=== PATIENT | female | born 1985 | race Caucasian/White ===

== ENCOUNTER 2018-10-15 02:33 | Inpatient (IN) ==
[2018-10-15 01:55] LABS: Bilirubin,Urine Negative (Negative); Blood,Urine Large (Negative); Clarity,Urine Cloudy (Clear); Color,Urine Red (Yellow); Glucose,Urine (UA) Normal (Normal); Ketones,Urine Trace mg/dL (Negative); Leukocyte Esterase,Urine Small (Negative); Nitrite,Urine Negative (Negative); PH,Urine 6.5 pH Units (5.0-8.0); Protein,Urine 100 mg/dL (Neg-Trace); Specific Gravity,Urine 1.008 (1.010-1.025); Urobilinogen,Urine Normal (Normal)
[2018-10-15 01:57] LABS: Bacteria,Urine None Seen per hpf (None-Few); Hyaline Casts,Urine None Seen per lpf (None-Few); RBC,Urine TNTC per hpf (0-3); Squamous Epithelial Cell,Urine Many per lpf (None-Few)
[2018-10-15 02:08] LABS: Transitional Epi Cells,Urine Few per hpf (None-Few)
[2018-10-15 02:12] LABS: Amphetamine Screen,Urine Negative ng/mL (Cutoff=1000); Barbiturate Screen,Urine Negative ng/mL (Cutoff=200); Benzodiazepines Screen,Urine Negative ng/mL (Cutoff=200); Cannabinoid Screen,Urine Negative ng/mL (Cutoff = 50); Cocaine Screen,Urine Negative ng/mL (Cutoff= 300); Opiate Screen,Urine Negative ng/mL (Cutoff=300); Phencyclidine Screen,Urine Negative ng/mL (Cutoff=25)
[~2018-10-15 02:33] MED LIST: *HR* Nalbuphine 10 MG/ML AMPUL IVP PRN; Azithromycin 250 MG TABLET PO ONE; Famotidine 20 MG/2 ML VIAL IVP PRN; Metoclopramide 10 MG/2 ML VIAL IVP PRN; Naloxone 0.4 MG/ML INJ IVP PRN; Ondansetron 4 MG/2 ML VIAL IVP PRN
--- NOTE | 2018-10-15 02:37 | OB/GYN History & Physical ---
Date of Encounter: 10/15/18 Time of Encounter: 02:34 Assessment and Plan (1) 32 weeks gestation of Current visit: Yes Status: Acute Patient at 32 weeks gestation by last menstrual period presents with vaginal bleeding which is found to be was likely ruptured membranes by history and exam. Did discuss with patient concern over the high likelihood of ensuing labor and the risk of chorioamnionitis. I have advised admission to hospital for ob servation. I did advise to go ahead and give steroids as well as start antibiotic prophylaxis against infection. I did advise that we could obviously continue following clinical course if her bleeding and leaking should stop we could reconsider treatment options. I did advise obtaining ultrasound in morning to assess growth and fluid levels. She is Rh- and did receive RhoGAM at 28 weeks. (2) Premature rupture of membranes (PROM) affecting fifth Current visit: Yes Status: Acute History of Present Illness Chief complaint: Postcoital bleeding at 32 weeks gestation HPI: Ms. ryan is a 33 year old female 7 para 5 female with an EDC of 12/08/18 presents at 32 weeks and 2 days with complaint of having dark blood from the vagina since approximately 1600 this afternoon when they had relations. She states she got up to go to the bathroom and noticed leakage of some fluid which was blood-tinged. This has continued and now she states approximately a cup and a half of blood-tinged fluid. She called her application technician at the [facility] and decision was made to come to the now for evaluation. Of note this been uncomplicated at the [facility]. Her EDC is based on certain last menstrual period her gestational age at her first visit was 21 weeks and 1 day blood type is A- and she did receive Rhogam on 09/23. She has had 1 prior miscarriage which was approximately last July. Her other 5 vaginal deliveries have been at term without complications. Past Med Surg Social Fam HX - Past Medical History Source: patient Medical history: no medical history Psychiatric history: no psych history - Past Surgical History Surgical History: no surgical history - Social History Smoking Status: Never smoker Alcohol use: none Drug use: none Obstetrical History - Pregnancies : 7 Para: 5 Medications and Allergies No Known Home Drugs 10/15/18 [History] Allergy/AdvReac Type Severity Reaction Status Date / Time No Known Allergies Allergy Verified 10/15/18 01:31 Exam - Constitutional Constitutional: well developed, well nourished, no acute distress - HEENT HEENT: EOMI, PERRL - Neck Neck exam: full ROM - Lungs Respiratory exam: CTAB - Cardiovascular Cardiovascular exam: RRR - Abdomen Abdomen: Present: gravid, non tender - Extremities Extremities exam: full ROM Deep Tendon Reflex Grade: 2+ Normal - Uterus Uterus exam: Present: enlarged - Comments Comments: Sterile speculum exam revealed large amount of thin blood-tinged fluid which was obviously nitrazine positive however I could not get ferning to occur. Cervix was initially closed Results Abnormal lab results Urine Color Red (Yellow) A 10/15/18 01:35 Urine Clarity Cloudy (Clear) A 10/15/18 01:35 Ur Specific [place] 1.008 (1.010-1.025) L 10/15/18 01:35 Urine Protein 100 mg/dL (Neg-Trace) H 10/15/18 01:35 Urine Ketones Trace mg/dL (Negative) H 10/15/18 01:35 Urine Blood Large (Negative) H 10/15/18 01:35 Ur Leukocyte Esterase Small (Negative) H 10/15/18 01:35 Urine Microscopic RBC TNTC per hpf (0-3) H 10/15/18 01:35 Urine Microscopic WBC 5-15 per hpf (0-3) H 10/15/18 01:35 Ur Squamous Epith Cells Many per lpf (None-Few) H 10/15/18 01:35 Ur Culture Indicated? YES (NO) A 10/15/18 01:35 All other labs normal. - VTE Reasons for not Prescribing Prophylaxis: Treatment not Indicated - Low risk for VTE
[2018-10-15] MEDS: Betamethasone Acet/SodPhos 30 MG/5 ML VIAL IM SCH (03:00)
[2018-10-15 03:12] LABS: Basophils % 0.1 %; Hematocrit 36.4 % (35.3-44.9); Hemoglobin 11.9 g/dL (11.5-15.4); Immature Granulocytes % 0.5 % (0-4); Lymphocytes # 2.3 K/mcL (0.6-4.6); Lymphocytes % 18.7 %; Mean Corpuscular HGB Conc 32.7 g/dL (31.6-35.5); Mean Corpuscular Hemoglobin 26.1 pg (28.0-33.3); Mean Corpuscular Volume 79.8 fL (83.0-100.0); Mean Platelet Volume 10.5 fL (9.4-12.4); Monocytes # 0.6 K/mcL (0.0-1.3); Monocytes % 4.9 %; Neutrophils # 9.2 K/mcL (1.6-8.9); Platelet Count 127 K/mcL (140-400); Red Blood Count 4.56 M/mcL (3.82-4.97); Red Cell Distribution Width 13.9 % (11.5-14.5); Segmented Neutrophils % 75.8 %; White Blood Count 12.2 K/mcL (4.3-11.1)
[2018-10-15] MEDS: Ampicillin 2 GM in 0.9 % Sodium Chloride Mini Bag 100 ML IVPB SCH ×4 (03:26→21:30)
[2018-10-15] MEDS: Ringers Solution, Lactated 1,000 ML IVC SCH ×3 (03:26→21:31)
--- NOTE | 2018-10-15 09:56 | OB/GYN Progress Note ---
Date of Encounter: 10/15/18 Time of Encounter: 09:53 - Assessment and Plan (1) 32 weeks gestation of Current Visit: Yes Status: Acute care done by soccer player. Pt is [employer]. Today was her first US with this . (2) Premature rupture of membranes (PROM) affecting fifth Current Visit: Yes Status: Acute She is s/p first dose of BMZ and has had azithromycin 500mg po x1 w/ Ampicillin 2g IV q6hr x48 hrs. She is on continuous monitoring. Plan to have her modified bedrest w/ consult to peds service. She will continue her abx for latency and receive second dose of steroids tomorrow morning. Adding T&S to next hgb check. Plan to collect GBS swab. Her WBC is normal. No clinical sign of chorio. No sign of PTL. Her growth is on target for GA. The fetus is cephalic with a posterior placenta. Discussed plan with the patient and her . All questions answered. Subjective - Subjective Principal diagnosis: pt reports that the bleeding is very light now Interval history: 33yo at 32 2/7 wks by sure LMP w/ reg menses who presented this AM w/ vb which began yesterday afternoon. She was examined this AM and was noted to have a large pool of bloody fluid. She was nitrazine pos but no ferning was noted. She has not had an US in the until today. She just had a growth scan. Antepartum ROS: vaginal bleeding, movement normal, no contractions (no f/c or abd pain) Objective - Vital Signs Vital Signs: Intake and Output 10/14/18 10/15/18 10/15/18 23:59 07:59 15:59 Intake Total 100 / 100 Balance 100 / 100 Intake: IV Fluids 100 / 100 Ampicillin 2 GM In 0.9 % Sodium 100 / 100 Chloride (Mini-Bag +) 100 ML @ 200 mls/hr IVPB Q6H [facility] Rx#: [id number] Other: Weight 98.43 kg Patient Weight 10/15/18 23:59 Weight 98.43 kg - Exam FHR: other Auscultation: bilateral: normal (RRR) Abdomen: Present: soft, gravid. Absent: tenderness Uterus: Absent: tenderness Cervical dilation: vis closed - Labs Labs: Abnormal lab results WBC 12.2 K/mcL (4.3-11.1) H 10/15/18 02:50 MCV 79.8 fL (83.0-100.0) L 10/15/18 02:50 MCH 26.1 pg (28.0-33.3) L 10/15/18 02:50 Plt Count 127 K/mcL (140-400) L 10/15/18 02:50 Neutrophils # 9.2 K/mcL (1.6-8.9) H 10/15/18 02:50 Urine Color Red (Yellow) A 10/15/18 01:35 Urine Clarity Cloudy (Clear) A 10/15/18 01:35 Ur Specific [place] 1.008 (1.010-1.025) L 10/15/18 01:35 Urine Protein 100 mg/dL (Neg-Trace) H 10/15/18 01:35 Urine Ketones Trace mg/dL (Negative) H 10/15/18 01:35 Urine Blood Large (Negative) H 10/15/18 01:35 Ur Leukocyte Esterase Small (Negative) H 10/15/18 01:35 Urine Microscopic RBC TNTC per hpf (0-3) H 10/15/18 01:35 Urine Microscopic WBC 5-15 per hpf (0-3) H 10/15/18 01:35 Ur Squamous Epith Cells Many per lpf (None-Few) H 10/15/18 01:35 Ur Culture Indicated? YES (NO) A 10/15/18 01:35
[2018-10-16] MEDS: Betamethasone Acet/SodPhos 30 MG/5 ML VIAL IM SCH (03:27)
[2018-10-16] MEDS: Ampicillin 2 GM in 0.9 % Sodium Chloride Mini Bag 100 ML IVPB SCH ×4 (03:27→22:12)
[2018-10-16] MEDS ORDERED: Ondansetron 4 MG/2 ML VIAL IVP PRN (13:12)
[2018-10-16] MEDS ORDERED: Acetaminophen 325 MG TABLET PO PRN (13:12)
[2018-10-16] MEDS ORDERED: 0.9 % Sodium Chloride 250 ML ONE (22:02)
[2018-10-17] MEDS ORDERED: Amoxicillin 500 MG CAPSULE PO SCH (08:00)
[2018-10-17] MEDS: Amoxicillin 500 MG CAPSULE PO SCH ×2 (10:06→16:44)
--- NOTE | 2018-10-17 10:15 | OB/GYN Progress Note ---
Date of Encounter: 10/17/18 Time of Encounter: 10:12 - Assessment and Plan (1) 32 weeks gestation of Current Visit: Yes Status: Acute (2) Premature rupture of membranes (PROM) affecting fifth Current Visit: Yes Status: Acute Stable PPROM Continue current management transition to PO antibiotics today encourage SCDs while in bed Remove P-lock Subjective - Subjective Interval history: Pt states feels well, denies contractions, vaginal bleeding or any current leaking of fluid. Reports good movement. No chills or s/s of fever. Antepartum ROS: movement normal, no loss of fluid, no vaginal bleeding, no contractions Objective - Vital Signs Vital Signs: Vital Signs Temp Pulse Resp BP Pulse Ox 10/17/18 08:26 97.9 F 85 16 120/70 97 10/17/18 06:02 97.7 F 10/17/18 05:00 97.7 F 76 14 102/64 99 10/17/18 02:00 98.3 F 10/17/18 00:00 98.3 F 85 18 101/53 98 10/16/18 22:15 98.2 F 10/16/18 20:00 98.1 F 78 14 118/78 96 10/16/18 17:30 98.4 F 90 18 120/67 100 10/16/18 15:59 98.2 F 10/16/18 13:30 98.0 F 87 18 103/62 97 Intake and Output 10/16/18 10/17/18 10/17/18 23:59 07:59 15:59 Intake Total 1000 / 1200 300 / 300 Output Total 1500 / 2700 600 / 600 Balance -500 / -1500 -300 / -300 Intake: IV Fluids 200 / 300 Ampicillin 2 GM In 0.9 % Sodium 200 / 200 Chloride (Mini-Bag +) 100 ML @ 200 mls/hr IVPB Q6H [facility] Rx#: [id number] Oral 800 / 900 300 / 300 Output: Urine 1500 / 2700 600 / 600 - Exam FHR: auscultation normal FHR comments: Baseline on NST 130 Auscultation: bilateral: normal Abdomen: Present: soft, gravid - Labs Labs: Abnormal lab results WBC 12.2 K/mcL (4.3-11.1) H 10/15/18 02:50 MCV 79.8 fL (83.0-100.0) L 10/15/18 02:50 MCH 26.1 pg (28.0-33.3) L 10/15/18 02:50 Plt Count 127 K/mcL (140-400) L 10/15/18 02:50 Neutrophils # 9.2 K/mcL (1.6-8.9) H 10/15/18 02:50 Urine Color Red (Yellow) A 10/15/18 01:35 Urine Clarity Cloudy (Clear) A 10/15/18 01:35 Ur Specific [place] 1.008 (1.010-1.025) L 10/15/18 01:35 Urine Protein 100 mg/dL (Neg-Trace) H 10/15/18 01:35 Urine Ketones Trace mg/dL (Negative) H 10/15/18 01:35 Urine Blood Large (Negative) H 10/15/18 01:35 Ur Leukocyte Esterase Small (Negative) H 10/15/18 01:35 Urine Microscopic RBC TNTC per hpf (0-3) H 10/15/18 01:35 Urine Microscopic WBC 5-15 per hpf (0-3) H 10/15/18 01:35 Ur Squamous Epith Cells Many per lpf (None-Few) H 10/15/18 01:35 Ur Culture Indicated? YES (NO) A 10/15/18 01:35
[2018-10-18] MEDS: Amoxicillin 500 MG CAPSULE PO SCH ×4 (01:22→23:40)
--- NOTE | 2018-10-18 12:20 | OB/GYN Progress Note ---
Date of Encounter: 10/18/18 Time of Encounter: 10:30 - Assessment and Plan (1) 32 weeks gestation of Current Visit: Yes Status: Acute Continue BID NSTs Continue oral antibiotics Continue close monitoring for onset of labor and/or infection Steroids have been given Would like to keep patient until 34 weeks POC per consult with Dr Mackenzie. (2) Premature rupture of membranes (PROM) affecting fifth Current Visit: Yes Status: Acute Subjective - Subjective Principal diagnosis: PPROM Interval history: Ms Crow states that she is feeling well. +FM Increased fluid from vagina compared to yesterday; pink tinged Denies cramping, contractions, vaginal/rectal pressure, and francis vaginal bleeding Denies flu-like symptoms Antepartum ROS: loss of fluid, movement normal Objective - Vital Signs Vital Signs: Vital Signs Temp Pulse Resp BP Pulse Ox 10/18/18 09:10 97.9 F 90 16 112/70 96 10/18/18 08:45 16 10/18/18 05:00 97.6 F 90 16 110/77 96 10/18/18 01:40 98.2 F 10/17/18 23:52 98.1 F 83 16 96/51 98 10/17/18 22:53 97.7 F 10/17/18 20:14 97.9 F 79 16 115/73 96 10/17/18 18:23 98.1 F 10/17/18 16:56 98.2 F 84 16 113/64 95 10/17/18 14:44 97.6 F 10/17/18 12:27 98.3 F 89 16 105/67 98 Intake and Output 10/17/18 10/18/18 10/18/18 23:59 07:59 15:59 Output Total 1300 / 3800 1700 / 2100 400 / 2100 Balance -1300 / -3500 -1700 / -2100 -400 / -2100 Output: Urine 1300 / 3800 1700 / 2100 400 / 2100 Other: Stool Characteristics Normal for Patient Normal for Patient - Exam FHR: auscultation normal, category 1 FHR comments: Reactive NST - category 1 with 15x15 accels and no decels. No contractions per toco or palpation Auscultation: bilateral: normal Abdomen: Present: normal appearance, soft, gravid. Absent: tenderness Uterus: Present: normal. Absent: firm, tenderness - Labs Labs: Abnormal lab results WBC 12.2 K/mcL (4.3-11.1) H 10/15/18 02:50 MCV 79.8 fL (83.0-100.0) L 10/15/18 02:50 MCH 26.1 pg (28.0-33.3) L 10/15/18 02:50 Plt Count 127 K/mcL (140-400) L 10/15/18 02:50 Neutrophils # 9.2 K/mcL (1.6-8.9) H 10/15/18 02:50 Urine Color Red (Yellow) A 10/15/18 01:35 Urine Clarity Cloudy (Clear) A 10/15/18 01:35 Ur Specific [place] 1.008 (1.010-1.025) L 10/15/18 01:35 Urine Protein 100 mg/dL (Neg-Trace) H 10/15/18 01:35 Urine Ketones Trace mg/dL (Negative) H 10/15/18 01:35 Urine Blood Large (Negative) H 10/15/18 01:35 Ur Leukocyte Esterase Small (Negative) H 10/15/18 01:35 Urine Microscopic RBC TNTC per hpf (0-3) H 10/15/18 01:35 Urine Microscopic WBC 5-15 per hpf (0-3) H 10/15/18 01:35 Ur Squamous Epith Cells Many per lpf (None-Few) H 10/15/18 01:35 Ur Culture Indicated? YES (NO) A 10/15/18 01:35
[2018-10-19] MEDS: Amoxicillin 500 MG CAPSULE PO SCH ×2 (08:17→15:36)
--- NOTE | 2018-10-19 08:50 | OB/GYN Progress Note ---
Date of Encounter: 10/19/18 Time of Encounter: 08:47 - Assessment and Plan (1) 32 weeks gestation of Current Visit: Yes Status: Acute (2) Premature rupture of membranes (PROM) affecting fifth Current Visit: Yes Status: Acute Stable PPROM Continue current management Continue po antibiotics encourage SCDs while in bed Subjective - Subjective Interval history: Stable, some leaking of clear and blood tinged fluid overnight. Reports good movement. Denies contractions. Occasionally using SCD's. Antepartum ROS: loss of fluid, vaginal bleeding, movement normal, no contractions Objective - Vital Signs Vital Signs: Vital Signs Temp Pulse Resp BP Pulse Ox 10/19/18 08:11 98.0 F 88 16 116/77 97 10/19/18 02:00 98.3 F 10/18/18 23:41 97.7 F 80 15 118/70 97 10/18/18 21:32 98.1 F 10/18/18 20:10 98.1 F 83 16 112/64 97 10/18/18 17:35 16 10/18/18 17:26 98.1 F 87 16 133/81 96 10/18/18 15:10 97.9 F 89 16 125/72 98 10/18/18 14:08 98 F 10/18/18 09:10 97.9 F 90 16 112/70 96 Intake and Output 10/18/18 10/19/18 10/19/18 23:59 07:59 15:59 Intake Total 800 / 800 800 / 800 Output Total 2000 / 5000 1290 / 1890 600 / 1890 Balance -1200 / -4200 -490 / -1090 -600 / -1090 Intake: Oral 800 / 800 800 / 800 Output: Urine 2000 / 5000 1290 / 1890 600 / 1890 Other: Meal Dinner Percent of Meal Consumed 70% Stool Characteristics Normal for Patient Weight 95.889 kg Patient Weight 10/19/18 23:59 Weight 95.889 kg - Exam FHR: auscultation normal FHR comments: Reactive NST Auscultation: bilateral: normal Abdomen: Present: soft, gravid - Labs Labs: Abnormal lab results WBC 12.2 K/mcL (4.3-11.1) H 10/15/18 02:50 MCV 79.8 fL (83.0-100.0) L 10/15/18 02:50 MCH 26.1 pg (28.0-33.3) L 10/15/18 02:50 Plt Count 127 K/mcL (140-400) L 10/15/18 02:50 Neutrophils # 9.2 K/mcL (1.6-8.9) H 10/15/18 02:50 Urine Color Red (Yellow) A 10/15/18 01:35 Urine Clarity Cloudy (Clear) A 10/15/18 01:35 Ur Specific [place] 1.008 (1.010-1.025) L 10/15/18 01:35 Urine Protein 100 mg/dL (Neg-Trace) H 10/15/18 01:35 Urine Ketones Trace mg/dL (Negative) H 10/15/18 01:35 Urine Blood Large (Negative) H 10/15/18 01:35 Ur Leukocyte Esterase Small (Negative) H 10/15/18 01:35 Urine Microscopic RBC TNTC per hpf (0-3) H 10/15/18 01:35 Urine Microscopic WBC 5-15 per hpf (0-3) H 10/15/18 01:35 Ur Squamous Epith Cells Many per lpf (None-Few) H 10/15/18 01:35 Ur Culture Indicated? YES (NO) A 10/15/18 01:35
[2018-10-20] MEDS: Amoxicillin 500 MG CAPSULE PO SCH ×3 (01:29→15:57)
--- NOTE | 2018-10-20 10:52 | OB/GYN Progress Note ---
Date of Encounter: 10/20/18 Time of Encounter: 10:50 - Assessment and Plan (1) 33 weeks gestation of Current Visit: Yes Status: Acute Continue bid NST's (2) Premature rupture of membranes (PROM) affecting fifth Current Visit: Yes Status: Acute Continue PO antibiotics as ordered Plan to deliver at 34 weeks. Subjective - Subjective Principal diagnosis: PPROM Interval history: Patient is 33 weeks today. She reports positive movement, denies bright red vaginal bleeding but does report some light pink fluid. She denies any chills or feeling feverish. She is aware of plan to continue antibiotics and goal of delivery at 34 weeks. Antepartum ROS: loss of fluid, vaginal bleeding (slight pink fluid), movement normal Objective - Vital Signs Vital Signs: Vital Signs Temp Pulse Resp BP Pulse Ox 10/20/18 10:33 97.9 F 10/20/18 08:44 98.1 F 92 16 105/66 10/20/18 06:00 97.8 F 10/20/18 03:32 98.2 F 88 15 103/63 97 10/20/18 01:33 97.7 F 85 16 105/61 97 10/19/18 20:11 98.1 F 89 16 110/70 95 10/19/18 18:35 98.2 F 10/19/18 16:36 98.0 F 90 16 124/73 96 10/19/18 15:37 98.1 F 10/19/18 13:35 98.1 F Intake and Output 10/19/18 10/20/18 10/20/18 23:59 07:59 15:59 Intake Total 240 / 240 Output Total 1060 / 3850 800 / 800 Balance -1060 / -3050 -800 / -560 240 / -560 Intake: Oral 240 / 240 Output: Urine 1060 / 3850 800 / 800 Other: Meal Breakfast Percent of Meal Consumed 100% Stool Characteristics Normal for Patient - Exam FHR: auscultation normal, category 1 FHR comments: Reactive NST this morning. Auscultation: bilateral: normal Abdomen: Present: normal appearance, soft, gravid. Absent: distention, tenderness Uterus: Present: normal Cervical dilation: Deferred - Labs Labs: Abnormal lab results WBC 12.2 K/mcL (4.3-11.1) H 10/15/18 02:50 MCV 79.8 fL (83.0-100.0) L 10/15/18 02:50 MCH 26.1 pg (28.0-33.3) L 10/15/18 02:50 Plt Count 127 K/mcL (140-400) L 10/15/18 02:50 Neutrophils # 9.2 K/mcL (1.6-8.9) H 10/15/18 02:50 Urine Color Red (Yellow) A 10/15/18 01:35 Urine Clarity Cloudy (Clear) A 10/15/18 01:35 Ur Specific [place] 1.008 (1.010-1.025) L 10/15/18 01:35 Urine Protein 100 mg/dL (Neg-Trace) H 10/15/18 01:35 Urine Ketones Trace mg/dL (Negative) H 10/15/18 01:35 Urine Blood Large (Negative) H 10/15/18 01:35 Ur Leukocyte Esterase Small (Negative) H 10/15/18 01:35 Urine Microscopic RBC TNTC per hpf (0-3) H 10/15/18 01:35 Urine Microscopic WBC 5-15 per hpf (0-3) H 10/15/18 01:35 Ur Squamous Epith Cells Many per lpf (None-Few) H 10/15/18 01:35 Ur Culture Indicated? YES (NO) A 10/15/18 01:35
[2018-10-21] MEDS: Amoxicillin 500 MG CAPSULE PO SCH ×3 (08:44→23:45)
--- NOTE | 2018-10-21 09:58 | OB/GYN Progress Note ---
Date of Encounter: 10/21/18 Time of Encounter: 09:54 - Assessment and Plan (1) 32 weeks gestation of Current Visit: Yes Status: Acute Patient at 32 weeks gestation by last menstrual period presents with vaginal bleeding which is found to be was likely ruptured membranes by history and exam. Did discuss with patient concern over the high likelihood of ensuing labor and the risk of chorioamnionitis. I have advised admission to hospital for o bservation. I did advise to go ahead and give steroids as well as start antibiotic prophylaxis against infection. I did advise that we could obviously continue following clinical course if her bleeding and leaking should stop we could reconsider treatment options. I did advise obtaining ultrasound in morning to assess growth and fluid levels. She is Rh- and did receive RhoGAM at 28 weeks 10/21/18- Pt at 33w1d gestation with PROM x 1 week, she is currently on PO Augmentin. I called [facility] to discuss possible d/c home on home bedrest and M doesn't advise this. They advise continued hospital observation with antepartum monitoring with expectation of delivery at 34 weeks, or sooner if labor, infetion or compromise ensues. Pt and her express understanding. (2) Premature rupture of membranes (PROM) affecting fifth Current Visit: Yes Status: Acute Subjective - Subjective Principal diagnosis: PROM Interval history: Pt stable, no uc's, no vb, no fever or abdominal pain. Objective - Vital Signs Vital Signs: Vital Signs Temp Pulse Resp BP Pulse Ox 10/21/18 07:56 97.9 F 78 16 119/65 95 10/21/18 06:26 97.6 F 10/21/18 04:00 97.9 F 83 15 105/65 98 10/21/18 02:15 98.2 F 10/20/18 20:00 98.1 F 86 16 115/60 97 10/20/18 16:08 98.2 F 90 16 107/74 10/20/18 14:00 97.9 F 10/20/18 11:55 97.9 F 93 16 102/69 10/20/18 10:33 97.9 F Intake and Output 10/20/18 10/21/18 10/21/18 23:59 07:59 15:59 Output Total 300 / 300 Balance -300 / -300 Output: Urine 300 / 300 - Exam FHR: category 1 Auscultation: bilateral: normal Abdomen: Present: gravid Uterus: Present: other (non tender) - Labs Labs: Abnormal lab results WBC 12.2 K/mcL (4.3-11.1) H 10/15/18 02:50 MCV 79.8 fL (83.0-100.0) L 10/15/18 02:50 MCH 26.1 pg (28.0-33.3) L 10/15/18 02:50 Plt Count 127 K/mcL (140-400) L 10/15/18 02:50 Neutrophils # 9.2 K/mcL (1.6-8.9) H 10/15/18 02:50 Urine Color Red (Yellow) A 10/15/18 01:35 Urine Clarity Cloudy (Clear) A 10/15/18 01:35 Ur Specific [place] 1.008 (1.010-1.025) L 10/15/18 01:35 Urine Protein 100 mg/dL (Neg-Trace) H 10/15/18 01:35 Urine Ketones Trace mg/dL (Negative) H 10/15/18 01:35 Urine Blood Large (Negative) H 10/15/18 01:35 Ur Leukocyte Esterase Small (Negative) H 10/15/18 01:35 Urine Microscopic RBC TNTC per hpf (0-3) H 10/15/18 01:35 Urine Microscopic WBC 5-15 per hpf (0-3) H 10/15/18 01:35 Ur Squamous Epith Cells Many per lpf (None-Few) H 10/15/18 01:35 Ur Culture Indicated? YES (NO) A 10/15/18 01:35
--- NOTE | 2018-10-22 09:28 | OB/GYN Progress Note ---
Date of Encounter: 10/22/18 Time of Encounter: 09:27 - Assessment and Plan (1) Premature rupture of membranes (PROM) affecting sixth Current Visit: Yes Status: Acute Cont inpatient monitoring for signs of PTL and chorioamnionitis. Cont to monitor fetus w/ twice daily NSTs. Currently stable. (2) 33 weeks gestation of Current Visit: Yes Status: Acute Complicated by PPROM Subjective - Subjective Principal diagnosis: PPROM Interval history: 33yo at 33 2/7 wks who presented at 32 2/7 wks w/ 24 hr of PPROM-blood tinged watery fluid. She was admitted for steroids for FLM and abx for latency which she completed yesterday. She is GBS neg. She has demonstrated no sign of PTL or chorioamnionitis. She continues to leak small amounts of blood tinged amniotic fluid. Plan will be for IOL at 34 wks if she remains stable. She had a normal growth scan on admission and was cephalic. Antepartum ROS: loss of fluid, vaginal bleeding, movement normal, contractions (irregular and not painful), no new complaints Objective - Vital Signs Vital Signs: Vital Signs Temp Pulse Resp BP Pulse Ox 10/22/18 07:56 98.2 F 98 16 122/78 99 10/22/18 06:05 97.9 F 10/22/18 04:00 98.2 F 84 14 107/69 99 10/22/18 01:36 98.2 F 10/21/18 23:48 98.3 F 78 14 92/60 97 10/21/18 21:55 98.3 F 10/21/18 19:50 98.1 F 81 18 114/60 98 10/21/18 18:06 98.2 F 10/21/18 16:27 98.6 F 85 18 116/76 10/21/18 14:40 97.5 F L 10/21/18 12:30 98.1 F 86 16 114/68 97 10/21/18 10:20 98.2 F Intake and Output 10/21/18 10/22/18 10/22/18 23:59 07:59 15:59 Intake Total 900 / 900 Output Total 2200 / 3000 Balance -1300 / -2100 Intake: Oral 900 / 900 Output: Urine 2200 / 3000 Other: Meal Dinner Percent of Meal Consumed 100% # Voids 1 Weight 93.4 kg Patient Weight 10/22/18 23:59 Weight 93.4 kg - Exam FHR comments: R NST this AM Auscultation: bilateral: normal (RRR on cardiac exam) Abdomen: Present: normal appearance, soft, gravid. Absent: tenderness Uterus: Absent: tenderness - Labs Labs: Abnormal lab results WBC 12.2 K/mcL (4.3-11.1) H 10/15/18 02:50 MCV 79.8 fL (83.0-100.0) L 10/15/18 02:50 MCH 26.1 pg (28.0-33.3) L 10/15/18 02:50 Plt Count 127 K/mcL (140-400) L 10/15/18 02:50 Neutrophils # 9.2 K/mcL (1.6-8.9) H 10/15/18 02:50 Urine Color Red (Yellow) A 10/15/18 01:35 Urine Clarity Cloudy (Clear) A 10/15/18 01:35 Ur Specific [place] 1.008 (1.010-1.025) L 10/15/18 01:35 Urine Protein 100 mg/dL (Neg-Trace) H 10/15/18 01:35 Urine Ketones Trace mg/dL (Negative) H 10/15/18 01:35 Urine Blood Large (Negative) H 10/15/18 01:35 Ur Leukocyte Esterase Small (Negative) H 10/15/18 01:35 Urine Microscopic RBC TNTC per hpf (0-3) H 10/15/18 01:35 Urine Microscopic WBC 5-15 per hpf (0-3) H 10/15/18 01:35 Ur Squamous Epith Cells Many per lpf (None-Few) H 10/15/18 01:35 Ur Culture Indicated? YES (NO) A 10/15/18 01:35
[2018-10-22] MEDS: Amoxicillin 500 MG CAPSULE PO SCH (11:09)
--- NOTE | 2018-10-23 08:18 | OB/GYN Progress Note ---
Date of Encounter: 10/23/18 Time of Encounter: 08:16 - Assessment and Plan (1) 33 weeks gestation of Current Visit: Yes Status: Acute Continue routine care per orders Dr. Mackenzie updated on assessment, no new recommendations at this time (2) Premature rupture of membranes (PROM) affecting sixth Current Visit: Yes Status: Acute Plan IOL at 34 weeks gestation Subjective - Subjective Principal diagnosis: PPROM Interval history: Patient is currently 33w3d gestation. She denies any new LOF or VB. Patient reports good movement. Antibiotics are complete. NSTs are still scheduled daily. Vital signs are stable. Antepartum ROS: movement normal, no contractions Objective - Vital Signs Vital Signs: Vital Signs Temp Pulse Resp BP Pulse Ox 10/23/18 07:36 98.2 F 92 16 106/92 99 10/23/18 06:01 97.6 F 10/23/18 03:25 97.9 F 85 16 91/55 96 10/23/18 00:40 98.2 F 81 16 98/51 96 10/22/18 22:24 98.1 F 10/22/18 21:20 97.6 F 10/22/18 20:00 98 F 86 16 113/72 95 10/22/18 18:00 98.2 F 10/22/18 16:00 98.1 F 78 14 110/57 98 10/22/18 14:05 98.0 F 10/22/18 12:00 98.8 F 93 14 120/74 10/22/18 10:00 98.2 F Intake and Output 10/22/18 10/23/18 10/23/18 23:59 07:59 15:59 Intake Total 800 / 800 Output Total 1600 / 2700 500 / 500 Balance -800 / -1900 -500 / -500 Intake: Oral 800 / 800 Output: Urine 1600 / 2700 500 / 500 - Exam Auscultation: bilateral: normal Abdomen: Present: normal appearance, soft, gravid - Labs Labs: Abnormal lab results WBC 12.2 K/mcL (4.3-11.1) H 10/15/18 02:50 MCV 79.8 fL (83.0-100.0) L 10/15/18 02:50 MCH 26.1 pg (28.0-33.3) L 10/15/18 02:50 Plt Count 127 K/mcL (140-400) L 10/15/18 02:50 Neutrophils # 9.2 K/mcL (1.6-8.9) H 10/15/18 02:50 Urine Color Red (Yellow) A 10/15/18 01:35 Urine Clarity Cloudy (Clear) A 10/15/18 01:35 Ur Specific [place] 1.008 (1.010-1.025) L 10/15/18 01:35 Urine Protein 100 mg/dL (Neg-Trace) H 10/15/18 01:35 Urine Ketones Trace mg/dL (Negative) H 10/15/18 01:35 Urine Blood Large (Negative) H 10/15/18 01:35 Ur Leukocyte Esterase Small (Negative) H 10/15/18 01:35 Urine Microscopic RBC TNTC per hpf (0-3) H 10/15/18 01:35 Urine Microscopic WBC 5-15 per hpf (0-3) H 10/15/18 01:35 Ur Squamous Epith Cells Many per lpf (None-Few) H 10/15/18 01:35 Ur Culture Indicated? YES (NO) A 10/15/18 01:35
[2018-10-23] MEDS: Amoxicillin 500 MG CAPSULE PO SCH (09:36)
--- NOTE | 2018-10-24 11:47 | OB/GYN Progress Note ---
Date of Encounter: 10/24/18 Time of Encounter: 11:45 - Assessment and Plan (1) premature rupture of membranes (PPROM) with unknown onset of labor Current Visit: Yes Status: Acute Continue to observe for s/sx infection or labor. Anticipate IOL at 34 weeks gestation. (2) 33 weeks gestation of Current Visit: Yes Status: Acute Subjective - Subjective Interval history: Pt reports occassional leaking. No bleeding. Good FM. Rare contractions. No fevers or chills. No pain. No other complaints. Antepartum ROS: loss of fluid, movement normal, contractions (occassional) Objective - Vital Signs Vital Signs: Vital Signs Temp Pulse Resp BP Pulse Ox 10/24/18 08:29 98.2 F 90 16 112/59 10/24/18 06:10 98.0 F 10/24/18 04:17 97.8 F 77 14 98/61 97 10/24/18 02:30 97.9 F 10/24/18 00:00 97.9 F 87 16 100/61 95 10/23/18 22:02 98.2 F 10/23/18 19:45 98.2 F 87 16 124/70 95 10/23/18 16:26 98.0 F 10/23/18 12:49 98.3 F 91 14 122/73 96 Intake and Output 10/23/18 10/24/18 10/24/18 23:59 07:59 15:59 Intake Total 0 / 1620 1620 / 1620 Output Total 550 / 1050 1500 / 1500 Balance -550 / -1050 -1500 / 120 1620 / 120 Intake: Oral 0 / 1620 1620 / 1620 Output: Urine 550 / 1050 1500 / 1500 Other: Meal Breakfast Percent of Meal Consumed 100% Weight 96.615 kg Patient Weight 10/24/18 23:59 Weight 96.615 kg - Exam FHR: category 1 FHR comments: 140 BPM, Reactive NST Auscultation: bilateral: normal Abdomen: Present: soft, gravid. Absent: tenderness Uterus: Absent: tenderness - Labs Labs: Abnormal lab results WBC 12.2 K/mcL (4.3-11.1) H 10/15/18 02:50 MCV 79.8 fL (83.0-100.0) L 10/15/18 02:50 MCH 26.1 pg (28.0-33.3) L 10/15/18 02:50 Plt Count 127 K/mcL (140-400) L 10/15/18 02:50 Neutrophils # 9.2 K/mcL (1.6-8.9) H 10/15/18 02:50 Urine Color Red (Yellow) A 10/15/18 01:35 Urine Clarity Cloudy (Clear) A 10/15/18 01:35 Ur Specific [place] 1.008 (1.010-1.025) L 10/15/18 01:35 Urine Protein 100 mg/dL (Neg-Trace) H 10/15/18 01:35 Urine Ketones Trace mg/dL (Negative) H 10/15/18 01:35 Urine Blood Large (Negative) H 10/15/18 01:35 Ur Leukocyte Esterase Small (Negative) H 10/15/18 01:35 Urine Microscopic RBC TNTC per hpf (0-3) H 10/15/18 01:35 Urine Microscopic WBC 5-15 per hpf (0-3) H 10/15/18 01:35 Ur Squamous Epith Cells Many per lpf (None-Few) H 10/15/18 01:35 Ur Culture Indicated? YES (NO) A 10/15/18 01:35
--- NOTE | 2018-10-25 10:16 | OB/GYN Progress Note ---
Date of Encounter: 10/25/18 Time of Encounter: 10:10 - Assessment and Plan (1) 33 weeks gestation of Current Visit: Yes Status: Acute no active s/s labor. + movement, not edwin. (2) Premature rupture of membranes (PROM) affecting sixth Current Visit: Yes Status: Acute 33 yo F at 33 weeks 5 days No change from prior assessments, continue to monitor for signs and symptoms of infection or signs and symptoms of labor. Anticipate IOL at 34 weeks gestation. Subjective - Subjective Principal diagnosis: PPROM Interval history: Patient reports no significant changes from yesterday. She denies any fevers or chills, nausea or vomiting, pain, leakage of fluids, vaginal bleeding, contractions. Reports good movement. Denies headache, blurry vision, double vision, weakness, chest pain, shortness of breath, nausea, vomiting, numbness or tingling, weakness Antepartum ROS: no new complaints Objective - Vital Signs Vital Signs: Vital Signs Temp Pulse Resp BP Pulse Ox 10/25/18 07:35 98.0 F 87 18 101/69 98 10/25/18 05:30 98.0 F 82 16 107/62 97 10/24/18 23:50 98.0 F 87 15 123/68 98 10/24/18 15:33 98.3 F 90 16 106/61 10/24/18 11:49 98.2 F 86 16 109/64 Intake and Output 10/24/18 10/25/18 10/25/18 23:59 07:59 15:59 Intake Total 1700 / 4360 360 / 360 Output Total 1200 / 4600 900 / 900 Balance 500 / -240 -900 / -540 360 / -540 Intake: Oral 1700 / 4360 360 / 360 Output: Urine 1200 / 4600 900 / 900 Other: Meal Dinner Breakfast Percent of Meal Consumed 100% 100% Stool Characteristics Normal for Patient Normal for Patient Weight 93.2 kg Patient Weight 10/25/18 23:59 Weight 93.2 kg - Exam FHR: category 1 Auscultation: bilateral: normal Abdomen: Present: normal appearance, gravid Uterus: Present: normal Cervical dilation: Pelvic exam deferred - Labs Labs: Abnormal lab results WBC 12.2 K/mcL (4.3-11.1) H 10/15/18 02:50 MCV 79.8 fL (83.0-100.0) L 10/15/18 02:50 MCH 26.1 pg (28.0-33.3) L 10/15/18 02:50 Plt Count 127 K/mcL (140-400) L 10/15/18 02:50 Neutrophils # 9.2 K/mcL (1.6-8.9) H 10/15/18 02:50 Urine Color Red (Yellow) A 10/15/18 01:35 Urine Clarity Cloudy (Clear) A 10/15/18 01:35 Ur Specific [place] 1.008 (1.010-1.025) L 10/15/18 01:35 Urine Protein 100 mg/dL (Neg-Trace) H 10/15/18 01:35 Urine Ketones Trace mg/dL (Negative) H 10/15/18 01:35 Urine Blood Large (Negative) H 10/15/18 01:35 Ur Leukocyte Esterase Small (Negative) H 10/15/18 01:35 Urine Microscopic RBC TNTC per hpf (0-3) H 10/15/18 01:35 Urine Microscopic WBC 5-15 per hpf (0-3) H 10/15/18 01:35 Ur Squamous Epith Cells Many per lpf (None-Few) H 10/15/18 01:35 Ur Culture Indicated? YES (NO) A 10/15/18 01:35
--- NOTE | 2018-10-25 17:30 | OB/GYN Progress Note ---
Date of Encounter: 10/25/18 Time of Encounter: 17:23 - Assessment and Plan (1) 32 weeks gestation of Current Visit: Yes Status: Acute Patient at 32 weeks gestation by last menstrual period presents with vaginal bleeding which is found to be was likely ruptured membranes by history and exam. Did discuss with patient concern over the high likelihood of ensuing labor and the risk of chorioamnionitis. I have advised admission to hospital for o bservation. I did advise to go ahead and give steroids as well as start antibiotic prophylaxis against infection. I did advise that we could obviously continue following clinical course if her bleeding and leaking should stop we could reconsider treatment options. I did advise obtaining ultrasound in morning to assess growth and fluid levels. She is Rh- and did receive RhoGAM at 28 weeks 10/21/18- Pt at 33w1d gestation with PROM x 1 week, she is currently on PO Augmentin. I called [facility] to discuss possible d/c home on home bedrest and M doesn't advise this. They advise continued hospital observation with antepartum monitoring with expectation of delivery at 34 weeks, or sooner if labor, infetion or compromise ensues. Pt and her express understanding. 10/25- Pt doing well without s/sx's of infection. occ uc's. Will cont current plan to observe and watch for s/sx's of infection. She is s/p steroids, IV and PO atb's. Plan will be to begin induction at 34 weeks. (2) Premature rupture of membranes (PROM) affecting fifth Current Visit: Yes Status: Acute Subjective - Subjective Principal diagnosis: PROM Interval history: Pt doing well today is 33w5d. She has had some clear drainage. rare uc's. +GFM. Objective - Vital Signs Vital Signs: Vital Signs Temp Pulse Resp BP Pulse Ox 10/25/18 15:14 98.3 F 102 16 117/80 10/25/18 11:23 97.8 F 90 16 108/65 10/25/18 07:35 98.0 F 87 18 101/69 98 10/25/18 05:30 98.0 F 82 16 107/62 97 10/24/18 23:50 98.0 F 87 15 123/68 98 Intake and Output 10/25/18 10/25/18 10/25/18 07:59 15:59 23:59 Intake Total 1720 / 1720 Output Total 900 / 2800 1900 / 2800 Balance -900 / -1080 -180 / -1080 Intake: Oral 1720 / 1720 Output: Urine 900 / 2800 1900 / 2800 Other: Meal Lunch Percent of Meal Consumed 100% Stool Characteristics Normal for Patient Weight 93.2 kg Patient Weight 10/25/18 23:59 Weight 93.2 kg - Exam FHR: category 1 Auscultation: bilateral: normal Abdomen: Present: normal appearance Uterus: Present: normal - Labs Labs: Abnormal lab results WBC 12.2 K/mcL (4.3-11.1) H 10/15/18 02:50 MCV 79.8 fL (83.0-100.0) L 10/15/18 02:50 MCH 26.1 pg (28.0-33.3) L 10/15/18 02:50 Plt Count 127 K/mcL (140-400) L 10/15/18 02:50 Neutrophils # 9.2 K/mcL (1.6-8.9) H 10/15/18 02:50 Urine Color Red (Yellow) A 10/15/18 01:35 Urine Clarity Cloudy (Clear) A 10/15/18 01:35 Ur Specific [place] 1.008 (1.010-1.025) L 10/15/18 01:35 Urine Protein 100 mg/dL (Neg-Trace) H 10/15/18 01:35 Urine Ketones Trace mg/dL (Negative) H 10/15/18 01:35 Urine Blood Large (Negative) H 10/15/18 01:35 Ur Leukocyte Esterase Small (Negative) H 10/15/18 01:35 Urine Microscopic RBC TNTC per hpf (0-3) H 10/15/18 01:35 Urine Microscopic WBC 5-15 per hpf (0-3) H 10/15/18 01:35 Ur Squamous Epith Cells Many per lpf (None-Few) H 10/15/18 01:35 Ur Culture Indicated? YES (NO) A 10/15/18 01:35
--- NOTE | 2018-10-26 07:02 | OB/GYN Progress Note ---
Date of Encounter: 10/26/18 Time of Encounter: 07:00 - Assessment and Plan (1) 32 weeks gestation of Current Visit: Yes Status: Acute Patient at 32 weeks gestation by last menstrual period presents with vaginal bleeding which is found to be was likely ruptured membranes by history and exam. Did discuss with patient concern over the high likelihood of ensuing labor and the risk of chorioamnionitis. I have advised admission to hospital for o bservation. I did advise to go ahead and give steroids as well as start antibiotic prophylaxis against infection. I did advise that we could obviously continue following clinical course if her bleeding and leaking should stop we could reconsider treatment options. I did advise obtaining ultrasound in morning to assess growth and fluid levels. She is Rh- and did receive RhoGAM at 28 weeks 10/21/18- Pt at 33w1d gestation with PROM x 1 week, she is currently on PO Augmentin. I called [facility] to discuss possible d/c home on home bedrest and [facility] doesn't advise this. They advise continued hospital observation with antepartum monitoring with expectation of delivery at 34 weeks, or sooner if labor, infetion or compromise ensues. Pt and her express understanding. 10/25- Pt doing well without s/sx's of infection. occ uc's. Will cont current plan to observe and watch for s/sx's of infection. She is s/p steroids, IV and PO atb's. Plan will be to begin induction at 34 weeks. (2) Premature rupture of membranes (PROM) affecting fifth Current Visit: Yes Status: Acute Pt with PROM and is now 33w6d. She is s/p b-meth and s/p IV and PO ATBs per PROM protocol. Plan will be induction starting at [place] tonight per [facility] recommendations. Subjective - Subjective Principal diagnosis: prom, 33w6d Interval history: Pt remains stable with rare uc's and no s/sx's of infection. Objective - Vital Signs Vital Signs: Vital Signs Temp Pulse Resp BP Pulse Ox 10/26/18 04:30 97.9 F 87 14 106/71 96 10/26/18 00:05 98.2 F 93 14 108/67 96 10/25/18 20:00 98.4 F 87 14 111/62 97 10/25/18 15:14 98.3 F 102 16 117/80 10/25/18 11:23 97.8 F 90 16 108/65 10/25/18 07:35 98.0 F 87 18 101/69 98 Intake and Output 10/25/18 10/25/18 10/26/18 15:59 23:59 07:59 Intake Total 1720 / 2660 940 / 2660 700 / 700 Output Total 1900 / 4800 2000 / 4800 1400 / 1400 Balance -180 / -2140 -1060 / -2140 -700 / -700 Intake: Oral 1720 / 2660 940 / 2660 700 / 700 Output: Urine 1900 / 4800 2000 / 4800 1400 / 1400 Other: Meal Lunch Dinner Percent of Meal Consumed 100% 100% Stool Characteristics Normal for Patient - Exam FHR: category 1 Auscultation: bilateral: normal Abdomen: Present: gravid - Labs Labs: Abnormal lab results WBC 12.2 K/mcL (4.3-11.1) H 10/15/18 02:50 MCV 79.8 fL (83.0-100.0) L 10/15/18 02:50 MCH 26.1 pg (28.0-33.3) L 10/15/18 02:50 Plt Count 127 K/mcL (140-400) L 10/15/18 02:50 Neutrophils # 9.2 K/mcL (1.6-8.9) H 10/15/18 02:50 Urine Color Red (Yellow) A 10/15/18 01:35 Urine Clarity Cloudy (Clear) A 10/15/18 01:35 Ur Specific [place] 1.008 (1.010-1.025) L 10/15/18 01:35 Urine Protein 100 mg/dL (Neg-Trace) H 10/15/18 01:35 Urine Ketones Trace mg/dL (Negative) H 10/15/18 01:35 Urine Blood Large (Negative) H 10/15/18 01:35 Ur Leukocyte Esterase Small (Negative) H 10/15/18 01:35 Urine Microscopic RBC TNTC per hpf (0-3) H 10/15/18 01:35 Urine Microscopic WBC 5-15 per hpf (0-3) H 10/15/18 01:35 Ur Squamous Epith Cells Many per lpf (None-Few) H 10/15/18 01:35 Ur Culture Indicated? YES (NO) A 10/15/18 01:35
[2018-10-26] MEDS ORDERED: Ampicillin 2 GM in 0.9 % Sodium Chloride Mini Bag 100 ML IVPB ONE (16:00)
[2018-10-26] MEDS: Ringers Solution, Lactated 1,000 ML IVC SCH ×2 (16:32→23:39)
[2018-10-26] MEDS: Ampicillin 1,000 MG in 0.9 % Sodium Chloride Mini Bag 100 ML IVPB SCH ×2 (20:04→23:38)
--- NOTE | 2018-10-27 00:16 | OB/GYN Progress Note ---
Date of Encounter: 10/27/18 Time of Encounter: 00:12 - Assessment and Plan (1) 32 weeks gestation of Current Visit: Yes Status: Acute Patient at 32 weeks gestation by last menstrual period presents with vaginal bleeding which is found to be was likely ruptured membranes by history and exam. Did discuss with patient concern over the high likelihood of ensuing labor and the risk of chorioamnionitis. I have advised admission to hospital for o bservation. I did advise to go ahead and give steroids as well as start antibiotic prophylaxis against infection. I did advise that we could obviously continue following clinical course if her bleeding and leaking should stop we could reconsider treatment options. I did advise obtaining ultrasound in morning to assess growth and fluid levels. She is Rh- and did receive RhoGAM at 28 weeks 10/21/18- Pt at 33w1d gestation with PROM x 1 week, she is currently on PO Augmentin. I called [facility] to discuss possible d/c home on home bedrest and M doesn't advise this. They advise continued hospital observation with antepartum monitoring with expectation of delivery at 34 weeks, or sooner if labor, infetion or compromise ensues. Pt and her express understanding. 10/25- Pt doing well without s/sx's of infection. occ uc's. Will cont current plan to observe and watch for s/sx's of infection. She is s/p steroids, IV and PO atb's. Plan will be to begin induction at 34 weeks. (2) Premature rupture of membranes (PROM) affecting fifth Current Visit: Yes Status: Acute Pt with PROM and is now 33w6d. She is s/p b-meth and s/p IV and PO ATBs per PROM protocol. Plan will be induction starting at [place] tonight per [facility] recommendations. Subjective - Subjective Principal diagnosis: PROM, now at 34 weeks EGA Interval history: Pt now at 34 weeks EGA now on L&D for induction. Pt aware of risks of prematurity vs risks of chorioamnionitis and desires to proceed with induction of labor. She has now received 3 doses of Ampicliin IV today. She is s/p b- meth and IV and po atb's per protocol. We have RNST. Plan . Objective - Vital Signs Vital Signs: Vital Signs Temp Pulse Resp BP Pulse Ox 10/26/18 19:58 14 10/26/18 19:50 97.9 F 83 14 121/71 97 10/26/18 15:23 97.7 F 86 16 133/65 10/26/18 12:33 16 10/26/18 11:36 98.2 F 90 16 113/70 10/26/18 08:00 98.1 F 98 16 118/82 10/26/18 04:30 97.9 F 87 14 106/71 96 Intake and Output 10/26/18 10/26/18 10/27/18 15:59 23:59 07:59 Intake Total 2300 / 5200 2200 / 5200 Output Total 3400 / 6800 2000 / 6800 Balance -1100 / -1600 200 / -1600 Intake: IV Fluids 1100 / 1100 Lactated Ringers 1,000 ML @ 125 1000 / 1000 mls/hr IVC .Q8H FATUMA Rx#: [id number] Ampicillin 1,000 MG In 0.9 % 100 / 100 Sodium Chloride (Mini-Bag +) 100 ML @ 200 mls/hr IVPB Q4HR FATUMA Rx#:[id number] Oral 2300 / 4100 1100 / 4100 Output: Urine 3400 / 6800 2000 / 6800 Other: Meal Lunch Dinner Percent of Meal Consumed 100% 100% Stool Size Moderate Stool Characteristics Normal for Patient Normal for Patient # Voids 1 - Labs Labs: Abnormal lab results WBC 12.2 K/mcL (4.3-11.1) H 10/15/18 02:50 MCV 79.8 fL (83.0-100.0) L 10/15/18 02:50 MCH 26.1 pg (28.0-33.3) L 10/15/18 02:50 Plt Count 127 K/mcL (140-400) L 10/15/18 02:50 Neutrophils # 9.2 K/mcL (1.6-8.9) H 10/15/18 02:50 Urine Color Red (Yellow) A 10/15/18 01:35 Urine Clarity Cloudy (Clear) A 10/15/18 01:35 Ur Specific [place] 1.008 (1.010-1.025) L 10/15/18 01:35 Urine Protein 100 mg/dL (Neg-Trace) H 10/15/18 01:35 Urine Ketones Trace mg/dL (Negative) H 10/15/18 01:35 Urine Blood Large (Negative) H 10/15/18 01:35 Ur Leukocyte Esterase Small (Negative) H 10/15/18 01:35 Urine Microscopic RBC TNTC per hpf (0-3) H 10/15/18 01:35 Urine Microscopic WBC 5-15 per hpf (0-3) H 10/15/18 01:35 Ur Squamous Epith Cells Many per lpf (None-Few) H 10/15/18 01:35 Ur Culture Indicated? YES (NO) A 10/15/18 01:35
--- NOTE | 2018-10-27 04:52 | OB Labor Progress Note ---
Date of Encounter: 10/27/18 Time of Encounter: 04:49 Labor Progress Note - Subjective Subjective: Pt states uc's getting "a little stronger". No other c/o. - Vital Signs Vital Signs: AF/VSS - Cervix Cervix: 1-2/30/-3 - Heart Tones Heart Tones: RNST - [place]: uc's q 2-5 min 50mmhg - Interventions Interventions: IUPC placed - Plan Plan: Will cont. pitocin. Expect .
[2018-10-27] MEDS: Ringers Solution, Lactated 1,000 ML IVC SCH (09:34)
[2018-10-27] MEDS: Ampicillin 1,000 MG in 0.9 % Sodium Chloride Mini Bag 100 ML IVPB SCH (11:40)
[2018-10-27] MEDS ORDERED: Oxytocin 20 units/ LR 1000 mL 20 UNIT/1,000 ML BAG IVC ONE (14:25)
--- NOTE | 2018-10-27 14:42 | OB/GYN Procedure Note ---
Delivery - Delivery Date: 10/27/18 Provider: Mare Aldana Intrapartum events: requiring assisted ventilation Delivery induction: oxytocin Delivery monitor: external FHT, internal uterine Anesthesia: none Quantitated Blood Loss: 100 - Infant (s) Infant A Infant Delivery Date: 10/27/18 Infant Delivery Time: 12:58 Presentation: vertex Position: RAVIN Route of delivery: Gender: Female Viability: Viable Weight Gram: 2.18 kg at 1 minute: 8 Shoulder Dystocia: not encountered Specimens collected: cord blood Placenta: spontaneous Cord: 3 umbilical vessels - Repair Episiotomy: none Laceration Description: None - Complications Delivery complications: none Delivery comments: Called to room by nursing staff due to patient being very uncomfortable and possible precipitous delivery. Dr. Ortiz currently in so I stayed in room in case of delivery. Patient spontaneously delivered with one push, viable female infant over intact perineum. placed on maternal abdomen for drying and stimulation. Cord clamped and cut after nursery staff arrived, approximately 2 minutes after delivery. Spontaneous delivery of intact placenta, EBL 100 mL's. No nuchal cord, shoulder dystocia, or meconium encountered. Mother stable for 2 hour recovery. Infant taken to nursery for further evaluation and necessary resuscitative measures. - Disposition Mom disposition: stable in LDR [place] disposition: taken to nursery
--- NOTE | 2018-10-28 06:24 | Discharge Summary ---
Date of Encounter: 10/28/18 Time of Encounter: 06:22 - Discharge Diagnosis (1) Vaginal delivery Priority: Primary Status: Acute Comments: Patient meeting day one milestones. Pain well-controlled with prescribed medications. Voiding without difficulty, tolerating regular diet, bleeding light. No bowel movement yet. Anticipate discharge today (2) Breast feeding status of mother Priority: Secondary Status: Acute Comments: support as needed - Discharge Medications Prescriptions: New Ibuprofen [Ibu] 600 mg PO Q6H PRN #60 tablet PRN Reason: cramping Calcium Carbonate [Tums] 1,000 mg PO Q4HR PRN tab.chew PRN Reason: Heartburn Acetaminophen [Tylenol] 650 mg PO Q6HR PRN tablet PRN Reason: Fever Home Medications: Acetaminophen [Tylenol] 650 mg PO Q6HR PRN tablet 10/28/18 [Rx] Calcium Carbonate [Tums] 1,000 mg PO Q4HR PRN tab.chew 10/28/18 [Rx] Ibuprofen [Ibu] 600 mg PO Q6H PRN #60 tablet 10/28/18 [Rx] Allergies/Adverse Reactions: Allergy/AdvReac Type Severity Reaction Status Date / Time No Known Allergies Allergy Verified 10/15/18 01:31 Data Procedures and tests throughout hospitalization: Laboratory Tests 10/15/18 10/15/18 10/15/18 01:35 01:35 02:50 WBC RBC Hgb Hct MCV MCH MCHC RDW Plt Count MPV Immature Gran % Seg Neutrophils % Lymphocytes % Monocytes % Eosinophils % Basophils % Neutrophils # Lymphocytes # Monocytes # Eosinophils # Basophils # Urine Color Red A Urine Clarity Cloudy A Urine pH 6.5 Ur Specific [place] 1.008 L Urine Protein 100 H Urine Glucose (UA) Normal Urine Ketones Trace H Urine Blood Large H Urine Nitrite Negative Urine Bilirubin Negative Urine Urobilinogen Normal Ur Leukocyte Esterase Small H Urine Microscopic RBC TNTC H Urine Microscopic WBC 5-15 H Ur Squamous Epith Cells Many H Ur Transition Epith Cell Few Urine Bacteria None Seen Hyaline Casts None Seen Ur Culture Indicated? YES A Urine Opiates Screen Negative Ur Buprenorphine Scrn Negative Ur Barbiturates Screen Negative Ur Phencyclidine Scrn Negative Ur Amphetamines Screen Negative U Benzodiazepines Scrn Negative Urine Cocaine Screen Negative U Marijuana (THC) Screen Negative Ur Drug Screen Interp See Below Hep Bs Antigen Blood Type A NEGATIVE Antibody Screen POSITIVE Antibody Identification Anti-D Due to Rhogam 10/15/18 10/15/18 10/15/18 02:50 02:50 16:55 WBC 12.2 H RBC 4.56 Hgb 11.9 11.9 Hct 36.4 MCV 79.8 L MCH 26.1 L MCHC 32.7 RDW 13.9 Plt Count 127 L MPV 10.5 Immature Gran % 0.5 Seg Neutrophils % 75.8 Lymphocytes % 18.7 Monocytes % 4.9 Eosinophils % 0.0 Basophils % 0.1 Neutrophils # 9.2 H Lymphocytes # 2.3 Monocytes # 0.6 Eosinophils # 0.0 Basophils # 0.0 Urine Color Urine Clarity Urine pH Ur Specific [place] Urine Protein Urine Glucose (UA) Urine Ketones Urine Blood Urine Nitrite Urine Bilirubin Urine Urobilinogen Ur Leukocyte Esterase Urine Microscopic RBC Urine Microscopic WBC Ur Squamous Epith Cells Ur Transition Epith Cell Urine Bacteria Hyaline Casts Ur Culture Indicated? Urine Opiates Screen Ur Buprenorphine Scrn Ur Barbiturates Screen Ur Phencyclidine Scrn Ur Amphetamines Screen U Benzodiazepines Scrn Urine Cocaine Screen U Marijuana (THC) Screen Ur Drug Screen Interp Hep Bs Antigen Nonreactive Blood Type Antibody Screen Antibody Identification - Impressions ITS Impressions Obstetrics Ultrasound 10/15/18 07:45 IMPRESSION: Single live intrauterine with gestational age of 31 weeks 5 days by current sonographic biometry. D/ / 10/15/2018 09:09:10 Blayne Castillo MD / Sho Edmondson Interpreting Provider: Blayne Castillo MD Date of admission: 10/15/18 02:33 Primary care physician: Yvette Bañuelos MD Discharging clinician: Mare Aldana Anticipated date of discharge: 10/28/18 - Patient Status Disposition: Home, Self-Care Condition: Good Functional capacity at discharge: independent ambulation Overall status at discharge: patient is progressing back to baseline - Discharge Instructions Follow Up With: Yvette Bañuelos MD [Primary Care Provider] - - Diet and Activity Activity: resume usual activities as tolerated Diet: regular diet Hospital Course Reason for admission: labor, rupture of membranes Delivery: Episiotomy: none Laceration: none Other procedures: none complications: none Discharge diagnosis: delivery [place] baby: female Hospital course: Patient was admitted approximately 2 weeks ago for PPROM at 32 weeks gestation. She was started on antibiotics and given a course of [place]. She successfully continued the to 34 weeks at which time she was induced. She progressed rapidly through labor and delivered vaginally yesterday afternoon. Time Attestation: Total time spent providing and/or coordinating discharge services: Time Spent: Less than 30 minutes Exam - Constitutional Vitals: Temp Pulse Resp BP Pulse Ox 98.1 F 82 15 110/74 98 10/28/18 04:25 10/28/18 04:25 10/28/18 04:25 10/28/18 04:25 10/28/18 04:25 General appearance IM: A&O X 3, pleasant, no acute distress, answers questions appropriately - Respiratory Respiratory exam: Present: CTAB. Absent: respiratory distress - Cardiovascular Cardiovascular exam IM: Present: RRR, +S1, +S2. Absent: irregular rhythm - GI/Abdominal GI/Abdominal exam IM: normal bowel sounds, soft - Rectal Rectal exam: deferred - External exam: normal external exam Uterine Tone: Firm Uterus Position: At Umbilicus, Midline - Extremities Exam Extremities exam IM: Present: full ROM, normal capillary refill, normal inspection. Absent: calf tenderness - Neurological Exam Neurological exam: alert, normal gait, oriented X3
[2018-10-28] MEDS ORDERED: Ibuprofen 600 MG TABLET PO PRN (07:18)
[2018-10-28] MEDS ORDERED: Oxytocin 20 units/ LR 1000 mL 20 UNIT/1,000 ML BAG IVC SCH (07:18)
[2018-10-28] MEDS ORDERED: Rho Immune Globulin 1,500 UNIT SYRINGE IM PRN (07:18)
[2018-10-28 08:31] VITALS: BP 103/60
[2018-10-28] MEDS ORDERED: Prenatal Vit/FA 1 EACH TABLET PO SCH (09:00)
== END 2018-10-28 10:00 | disposition home or self-care (01) | DRG 807 ==
LOC: 1NENULAB → 1NENUOBS 10-16 12:16 → 1NENULAB 10-27 00:47 → 1NENUOBS 10-27 15:41
PROVIDERS: ADMIT Advanced Practice Midwife; ATTEND Advanced Practice Midwife